=== PATIENT | male | born 1960 | race Caucasian/White ===

== ENCOUNTER → 2018-07-25 07:18 | Outpatient (CLI) | payer BC, SELFPAY ==
--- NOTE | 2018-07-25 07:22 | CT_ITS ---
STUDY: CT ABDOMEN AND PELVIS WITH CONTRAST REASON FOR EXAM: Male, 58 years old. History of partial left nephrectomy for carcinoma. RADIATION DOSAGE (If Supplied By Facility): CTDIvol = ( 17.46 ) mGy, DLP = ( 2093.21 ) mGycm TECHNIQUE: Transaxial images were obtained from the dome of the diaphragm to the symphysis pubis without oral contrast. 75 IV Isovue 300 was administered. Sagittal and coronal images were reconstructed. Individualized dose optimization techniques were used for this CT. COMPARISON: None. FINDINGS: The visualized lung bases are unremarkable. The visualized portions of the heart are within normal limits. Normal liver. Normal gallbladder and extrahepatic biliary system. Normal spleen. Normal pancreas. Normal bilateral adrenal glands. Normal right kidney. There is evidence of a postoperative thinning of the posterior superior cortex of the left kidney in keeping with history of prior partial nephrectomy. No new mass is seen. Normal visualized stomach. Normal small intestine. There are scattered colonic diverticula consistent with diverticulosis. The appendix is visualized and appears normal. Normal abdominal aorta. Normal inferior vena cava. There is a prominence of the common iliac veins bilaterally. There is retroperitoneal lymphadenopathy with enlarged nodes greater than 10-15mm in the short axis. The largest measures 2 cm x 2 cm. This is at the level of the left renal hilus. A smaller sized lymph node is seen just lateral to that. There is a 8.3 mm rounded nodular density of increased attenuation at the base of the bladder. There are prostatic calcifications. The prostate measures 4.3 cm x 4.6 cm. Normal abdominal wall. Small bilateral benign-appearing inguinal lymph nodes. There are mild degenerative changes of the visualized lumbar spine. CT/Abdomen/Pelvis WITH Contrast IMPRESSION: Status post partial left nephrectomy. Retroperitoneal lymphadenopathy as described. Focal nodular density at the base of the bladder as described. Electronically Signed: Lorne Vila, at 10:20 EDT , Service support ,
[2018-07-25 07:40] LABS: CREATININE FINGERSTICK 1.3 mg/dL (0.70-1.30)
== END ==
PROVIDERS: Referring Provider Urology; Visit Provider Urology
DX: Z85.528 Personal history of other malignant neoplasm of kidney (principal); Z90.5 Acquired absence of kidney
CPT/HCPCS: 74177; Q9967